=== PATIENT | male | born 1945 ===

== ENCOUNTER 2020-01-14 17:00 | Observation (INO) ==
[2020-01-14] MEDS ORDERED: GLUCAGON 1 MG VIAL IM PRN (19:07)
[2020-01-14] MEDS ORDERED: DEXTROSE 50% 25 GM/50 ML VIAL IV PRN (19:07)
[2020-01-14] MEDS ORDERED: ACETAMINOPHEN 325 MG TABLET PO PRN (19:07)
[2020-01-14] MEDS ORDERED: DOCUSATE SODIUM 100 MG CAPSULE PO PRN (19:07)
[2020-01-14] MEDS ORDERED: ONDANSETRON 4 MG/2 ML VIAL IV PRN (19:07)
[2020-01-14] MEDS ORDERED: ASPIRIN EC 325 MG TABLET PO SCH (20:00)
[2020-01-14] MEDS ORDERED: CLOPIDOGREL 75 MG TABLET PO ONE (20:00)
[2020-01-14] MEDS: DEXTROSE 5% NACL 0.45% 1,000 ML IV SCH (21:21)
[2020-01-15 06:36] LABS: Basophils # 0.1 10*3/uL (0.0-0.2); Basophils % 0.7 % (0.0-0.8); Eosinophils # 0.4 10*3/uL (0.0-0.87); Eosinophils % 5.8 % (0.00-10.9); Hematocrit 36.9 VOL% (42.0-52.0); Hemoglobin 13.3 GM/DL (14.0-18.0); Immature Granulocytes % 0.3 %; Immature Granulocytes Absolute 0.02 #; Lymphocytes # 1.5 10*3/uL (1.4-4.0); Lymphocytes % 22.2 % (21.2-54.2); Mean Corpuscular Volume 76.9 FL (87-102); Mean Platelet Volume 10.3 FL (9.6-12.0); Monocytes % 7.4 % (1.7-12.7); Neutrophils % 63.6 % (38.7-73.9); Platelet Count 302 T/CUMM (130-400); Red Cell Distribution Width 14.3 % (9.3-17.3); White Blood Count 6.9 T/CUMM (4-12)
[2020-01-15 06:53] LABS: Albumin 3.5 G/DL (3.4-5.0); Bilirubin,Total 0.8 MG/DL (0.2-1.0); Calcium 9.5 MG/DL (8.5-10.1); Osmolality,Calculated 275.4 MOS/KG (273-304); Risk Ratio 1.85; Thyroid Stimulating Hormone 1.69 uIU/ml (0.358-3.74); Total Protein 6.8 G/DL (6.4-8.3); VLDL CHOLESTEROL 12.6 MG/DL
[2020-01-15] MEDS: CLOPIDOGREL 75 MG TABLET PO SCH (09:49)
[2020-01-15] MEDS: DEXTROSE 5% NACL 0.45% 1,000 ML IV SCH (13:18)
[2020-01-16] MEDS: DEXTROSE 5% NACL 0.45% 1,000 ML IV SCH (08:02)
[2020-01-16] MEDS: CLOPIDOGREL 75 MG TABLET PO SCH (08:02)
[2020-01-16] MEDS ORDERED: ATORVASTATIN 20 MG TABLET PO SCH (09:00)
[2020-01-16] MEDS ORDERED: ASPIRIN EC 81 MG TABLET PO SCH (09:00)
[2020-01-16 11:48] VITALS: BP 156/82
== END 2020-01-16 13:02 | disposition home or self-care (01) ==
LOC: N.5E 17:57 → INTOOBSV 17:57 → SUATTDRO 17:57
PROVIDERS: ADMIT Internal Medicine; ATTEND Family Medicine